=== PATIENT | male | born 1975 | race Caucasian/White ===

== ENCOUNTER 2017-12-28 10:04 | Emergency (ER) | payer SELFPAY ==
[2017-12-28 10:16] VITALS: BP 134/80; PULSE 82; TEMP 97.8; BMI 28.2
--- NOTE | 2017-12-28 11:54 | PDOC ---
History of Present Illness - General History Source: Patient Exam Limitations: No Limitations - History of Present Illness Initial Comments: 12/28/17 12:27 The patient is a 42 year old male with a significant PMH of hyperlipidemia who presents to the emergency department with left foot weakness for the past 4 days. The patient endorses heavy drinking on 12/23/17 and went to sleep that night but woke up with his left foot dangling off of his son's small bed. The patient reports associated numbness to the left forefoot but denies any foot or back pain. The patient notes he is having difficulty ambulating prompting his visit to the ER today. The patient denies any headache, double vision, upper extremity weakness, palpitations, trouble speaking, or back pain. The patient denies back pain, chest pain, shortness of breath, headache and dizziness. Denies fever, chills, nausea, vomit, diarrhea and constipation. Denies dysuria, frequency, urgency and hematuria. Allergies: NKA Past surgical history: None reported. Social history: Former smoker. Drinks 3-4 days per week. No reported drug use. PCP: Dr. Patton <Sis Mcgarry - Last Filed: 12/28/17 12:27> <Flavio Henning - Last Filed: 12/28/17 13:21> - General Chief Complaint: Pain, Acute Stated Complaint: LT FOOT NUMBESS Time Seen by Provider: 12/28/17 11:13 Past History <Sis Mcgarry - Last Filed: 12/28/17 12:27> - Past Medical History CVA: No COPD: No DVT: No Dementia: No Hypercholesterolemia: Yes - Immunization History Immunization Up to Date: Yes - Suicide/Smoking/Psychosocial Hx Smoking Status: No Smoking History: Former smoker Have you smoked in the past 12 months: No Number of Cigarettes Smoked Daily: 26 If you are a former smoker, when did you quit?: 7yrs Information on smoking cessation initiated: No Hx Alcohol Use: No Drug/Substance Use Hx: No Substance Use Type: None Hx Substance Use Treatment: No <Flavio Henning - Last Filed: 12/28/17 13:21> - Past Medical History Allergies/Adverse Reactions: Allergies Allergy/AdvReac Type Severity Reaction Status Date / Time No Known Allergies Allergy Verified 12/28/17 10:10 Home Medications: Ambulatory Orders No Home Medications 0 dose .ROUTE UTDICT 12/05/12 Metronidazole [Flagyl] 500 mg PO TID #28 tablet 12/07/12 Oxycodone HCl/Acetaminophen [Percocet 5-325 mg Tablet] 1 - 2 combo PO Q4H PRN # 0 tablet 12/07/12 Pantoprazole Sodium [Protonix -] 40 mg PO DAILY #0 tablet.ec 12/07/12 levoFLOXacin [Levaquin -] 500 mg PO DAILY #0 tablet 12/07/12 Leg Brace [Ankle Brace] 1 each MC ONCE #1 each 12/28/17 Review of Systems - Review of Systems Constitutional: No: Chills, Fever HEENTM: No: Recent change in vision, Double Vision ABD/GI: No: Nausea, Vomiting Musculoskeletal: No: Joint Pain, Muscle Pain Neurological: Yes: Weakness. No: Headache, Tingling, Ataxia All Other Systems: Reviewed and Negative <Flavio Henning - Last Filed: 12/28/17 13:21> *Physical Exam - Vital Signs Last Vital Signs Temp Pulse Resp BP Pulse Ox 97.8 F 82 16 134/80 97 12/28/17 10:11 12/28/17 10:11 12/28/17 10:11 12/28/17 10:11 12/28/17 10:11 - Physical Exam Comments: 12/28/17 12:28 GENERAL: The patient is awake, alert, and fully oriented, in no acute distress. HEAD: Normal with no signs of trauma. EYES: Pupils equal, round and reactive to light, extraocular movements intact, sclera anicteric, conjunctiva clear with no pallor. ENT: Ears normal, nares patent, oropharynx clear without exudates. Moist mucous membranes. NECK: Normal range of motion, supple without lymphadenopathy, JVD, or masses. LUNGS: Breath sounds equal, clear to auscultation bilaterally. No wheeze/ crackles. HEART: Regular rate and rhythm, normal S1 and S2 without murmur or rub. ABDOMEN: Soft/nontender/nondistended. BS wnl. No guarding or rebound. No palpable masses. No hepatosplenomegaly. EXTREMITIES: (+) 5/5 flexion and extension at the hip and leg. (+) 5/5 plantar flexion. (+) 3/5 dorsiflexion at the ankle. (+) 2+ DP/PT pulses. (+) Sensation intact. (+) Good cap refill. No edema. No clubbing or cyanosis. No cords, erythema, or tenderness. NEUROLOGICAL: Cranial nerves II through XII grossly intact. Normal speech. PSYCH: Normal mood, normal affect. SKIN: Warm, Dry, normal turgor, no rashes or lesions noted. <Sis Mcgarry - Last Filed: 12/28/17 12:27> - Vital Signs Last Vital Signs Temp Pulse Resp BP Pulse Ox 97.8 F 82 16 134/80 97 12/28/17 10:11 12/28/17 10:11 12/28/17 10:11 12/28/17 10:11 12/28/17 10:11 <Flavio Henning - Last Filed: 12/28/17 13:21> ED Treatment Course - RADIOLOGY Radiology Studies Ordered: Category Date Time Status HEAD CT (STROKE) [CT] Stat CT Scan 12/28/17 11:37 Ordered <Flavio Henning - Last Filed: 12/28/17 13:21> Medical Decision Making - Medical Decision Making 12/28/17 11:50 A portion of this note was documented by scribe services under my direction. I have reviewed the details of the note, within reason, and agree with the documentation with the following case summary and management plan written by me. Healthy 42-year-old male with history of slightly elevated cholesterol presents with 4 days of left foot weakness. Patient admits to heavy drinking Monday night, fell asleep in his son's bed and awoke Monday morning with left foot weakness described as inability to raise left foot. No pain, questionable subtle paresthesias, no other weakness or headache or neurological deficits. He has been having persistent difficulty ambulating secondary to the left foot drop so he presents for evaluation today. Vital signs normal. Well-appearing. 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 Less likely radiculopathy, and less likely [employer] event. We'll check CT head Reassurance, prescription for foot brace, medical clinic and physical therapy referral 12/28/17 13:07 CT without acute pathology. Will proceed with plan for d/c, PT f/u, understands return criteria. <Flavio Henning - Last Filed: 12/28/17 13:21> *DC/Admit/Observation/Transfer - Attestations Scribe Attestion: 12/28/17 12:28 Documentation prepared by Sis Mcgarry, acting as medical insurance claims specialist for Flavio Henning MD. <Sis Mcgarry - Last Filed: 12/28/17 12:27> <Flavio Henning - Last Filed: 12/28/17 13:21> Diagnosis at time of Disposition: Left foot drop - Discharge Dispostion Disposition: HOME Condition at time of disposition: Stable - Prescriptions Prescriptions: Leg Brace [Ankle Brace] 1 each MC ONCE #1 each - Referrals Referrals: Cy Lo MD [Staff Physician] - Hernan Thomas MD [Staff Physician] - - Patient Instructions Printed Discharge Instructions: Peroneal Nerve Injury Additional Instructions: Activity as tolerated. Use the ankle/foot brace as prescribed. Stay hydrated. Physical Therapy exercises as outlined. Call [phone] for an appointment with our physical therapists. Continue your medications as previously prescribed by your physician. You should follow up with a primary doctor (consider calling our clinic) as soon as possible regarding today's emergency department visit. Return to the emergency department for any new or concerning symptoms, particularly progressive or worsening weakness, pain, swelling or discoloration. - Post Discharge Activity
== END 2017-12-28 13:45 | disposition home or self-care (01) ==
LOC: JER 10:04 → JERFT 10:04 → JER 13:45
DX: M21.372 Foot drop, left foot (principal)
CPT/HCPCS: 70450-TC; 99282-25

== ENCOUNTER 2019-07-19 13:20 | Emergency (ER) | payer OTHER ==
[2019-07-19 13:35] VITALS: BP 131/84; PULSE 69; TEMP 98.2; BMI 29.8
[2019-07-19] MEDS ORDERED: PROMETHAZINE HCL 50 MG/1 ML AMP IM ONE (14:17)
[2019-07-19] MEDS ORDERED: diazePAM 2 MG TABLET PO ONE (14:17)
--- NOTE | 2019-07-19 14:22 | PDOC ---
History of Present Illness - General Chief Complaint: Substance Abuse Stated Complaint: DETOX Time Seen by Provider: 07/19/19 14:15 History Source: Patient Exam Limitations: No Limitations - History of Present Illness Initial Comments: 07/19/19 14:18 HISTORY OF PRESENT ILLNESS: 44-year-old male with past medical history of testicular cancer status post orchiectomy 04/30 who presents to the emergency department for evaluation for opioid detox. Patient reports he been taking 20- 30 tablets daily of "whatever I can get on the street" but usually oxycodone. He reports he attempted to call detox facility but "they took too long to answer." Patient presented to emergency department for evaluation. Currently reports nausea and irritability but denies other symptoms. No recent travel or sick contacts. PAST MEDICAL HISTORY: see HPI SURGICAL HISTORY: see HPI ALLERGIES: No known drug allergies REVIEW OF SYSTEMS General/Constitutional: Denies fever or chills. Denies weakness, weight change. HEENT: Denies change in vision. Denies ear pain or discharge. Denies sore throat. Cardiovascular: Denies chest pain or shortness of breath. Respiratory: Denies cough, wheezing, or hemoptysis. Gastrointestinal: Denies nausea, vomiting, diarrhea or constipation. Denies rectal bleeding. Genitourinary: see HPI Musculoskeletal: Denies joint or muscle swelling or pain. Denies neck or back pain. Skin and breasts: Denies rash or easy bruising. Neurologic: Denies headache, vertigo, loss of consciousness, or loss of sensation. Psychiatric: see HPI Endocrine: Denies increased thirst. Denies abnormal weight change. Hematologic/Lymphatic: Denies anemia, easy bleeding, or history of blood clots. Allergic/Immunologic: Denies hives or skin allergy. Denies latex allergy. PHYSICAL EXAM General Appearance: Well-appearing, appropriately dressed. No apparent distress , no intoxication. HEENT: EOMI, PERRLA, normal ENT inspection, normal voice, TMs normal, pharynx normal. No conjunctival pallor. No photophobia, scleral icterus. Respiratory/Chest: Lungs CTAB. No shortness of breath, chest tenderness, respiratory distress, accessory muscle use. No crackles, rales, rhonchi, stridor , wheezing, dullness Cardiovascular: RRR. S1, S2. No JVD, murmur, bradycardia, tachycardia. Vascular Pulses: Dorsalis-Pedis (R): 2+, Dorsalis-Pedis (L): 2+ Gastrointestinal/Abdominal: Normal bowel sounds. Abdomen soft, non-distended. No tenderness or rebound tenderness. No organomegaly, pulsatile mass, guarding, hernia, hepatomegaly, splenomegaly. Lymphatic: No adenopathy, tenderness. Musculoskeletal/Extremities: Normal inspection. FROM of all extremities, normal capillary refill. Pelvis Stable. No CVA tenderness. No tenderness to extremities, pedal edema, swelling, erythema or deformity. Integumentary: Appropriate color, dry, warm. No cyanosis, erythema, jaundice or rash. Gooseflesh skin. Neurologic: maternity nurse II-XII intact. Fully oriented, alert. Appropriate mood/affect. Motor strength 5/5. No appreciable EOM palsy, facial droop or sensory deficit. No tremors noted. 07/19/19 14:23 Past History - Past Medical History Allergies/Adverse Reactions: Allergies Allergy/AdvReac Type Severity Reaction Status Date / Time No Known Allergies Allergy Verified 07/19/19 13:31 Home Medications: Ambulatory Orders No Home Medications 0 dose .ROUTE UTDICT 12/05/12 Metronidazole [Flagyl] 500 mg PO TID #28 tablet 12/07/12 Oxycodone HCl/Acetaminophen [Percocet 5-325 mg Tablet] 1 - 2 combo PO Q4H PRN # 0 tablet 12/07/12 Pantoprazole Sodium [Protonix -] 40 mg PO DAILY #0 tablet.ec 12/07/12 levoFLOXacin [Levaquin -] 500 mg PO DAILY #0 tablet 12/07/12 Leg Brace [Ankle Brace] 1 each MC ONCE #1 each 12/28/17 CVA: No COPD: No DVT: No Dementia: No Hypercholesterolemia: Yes Lung CA: Yes (oxycotine abuse 25-35pills daily) - Immunization History Immunization Up to Date: Yes - Suicide/Smoking/Psychosocial Hx Smoking Status: No Smoking History: Former smoker Have you smoked in the past 12 months: No Number of Cigarettes Smoked Daily: 26 If you are a former smoker, when did you quit?: 7yrs Information on smoking cessation initiated: No Hx Alcohol Use: No Drug/Substance Use Hx: No Substance Use Type: None Hx Substance Use Treatment: No *Physical Exam - Vital Signs Last Vital Signs Temp Pulse Resp BP Pulse Ox 98.2 F 69 16 131/84 100 07/19/19 13:32 07/19/19 13:32 07/19/19 13:32 07/19/19 13:32 07/19/19 13:32 ED Treatment Course - LABORATORY CBC & Chemistry Diagram: 07/19/19 14:50 07/19/19 14:50 Medical Decision Making - Medical Decision Making 07/19/19 14:25 A/P: 44-year-old male for evaluation of opiate withdrawal The patient hasabdominal tenderness worse scleral icterus I cannot rule out's liver damage due to possible prolonged use of Tylenol containing pharmaceuticals. COWS- 10 mild withdrawal CBC, CMP, urine toxicology Phenergan 25 mg IM now Valium 2 mg orally now- low threshold increased dosage prn We'll contact [facility] for admission if laboratory testing is normal. 07/19/19 16:23 Laboratory testing is unremarkable. No signs of liver failure noted. Patient is aware there are no beds in detox at this time. Patient reports frustration with lack of beds at detox facility. Patient is requesting discharge at this time. I will discharge the patient home to return to [facility] as needed for detox. 07/19/19 16:35 *DC/Admit/Observation/Transfer Diagnosis at time of Disposition: Opiate abuse, continuous - Discharge Dispostion Disposition: HOME Condition at time of disposition: Stable Decision to Admit order: No - Referrals Referrals: Rigoberto Patton MD [Primary Care Provider] - - Patient Instructions Additional Instructions: Go to [facility] should you desire detox. There are other detox facilities in [facility] that you may use should you choose. Return to emergency department for any new or worsening symptoms. Thank you very much for choosing us to provide your emergent health care needs. - Post Discharge Activity
[2019-07-19] MEDS ORDERED: PROMETHAZINE HCL 25 MG/1 ML VIAL ONE (14:35)
[2019-07-19] MEDS ORDERED: diazePAM 2 MG TABLET ONE (14:35)
[2019-07-19 15:11] LABS: BASO % 0.3 % (0-2.0); EOS % 0.1 % (0-4.5); HEMOGLOBIN 12.9 GM/dL (11.7-16.9); LYMPH % 13.6 % (8-40); MCH 28.8 pg (25.7-33.7); MCHC 33.8 g/dl (32.0-35.9); MEAN CELL VOLUME 85.1 fl (80-96); MEAN PLT VOLUME 8.7 fl (7.5-11.1); MONO % 3.2 % (3.8-10.2); NEUT % 82.8 % (42.8-82.8); PLATELET COUNT 292 K/MM3 (134-434); RBC 4.47 M/mm3 (4.00-5.60); RDW 13.6 % (11.9-15.9); WHITE BLOOD COUNT 10.5 K/mm3 (4.0-10.0)
--- NOTE | 2019-07-19 15:23 | PDOC ---
*Physical Exam - Vital Signs Last Vital Signs Temp Pulse Resp BP Pulse Ox 98.2 F 69 16 131/84 100 07/19/19 13:32 07/19/19 13:32 07/19/19 13:32 07/19/19 13:32 07/19/19 13:32 ED Treatment Course - LABORATORY CBC & Chemistry Diagram: 07/19/19 14:50 07/19/19 14:50 - ADDITIONAL ORDERS Additional order review: 07/19/19 14:50 RBC 4.47 MCV 85.1 MCHC 33.8 RDW 13.6 MPV 8.7 Neutrophils % 82.8 D Lymphocytes % 13.6 D Monocytes % 3.2 L Eosinophils % 0.1 D Basophils % 0.3 - Medications Given in the ED: ED Medications Discontinued Medications Generic Name Dose Route Start Last Admin Trade Name Alexandre PRN Reason Stop Dose Admin Diazepam 2 mg 07/19/19 14:17 07/19/19 14:41 Valium - PO 07/19/19 14:18 2 mg ONCE ONE Administration Promethazine HCl 25 mg 07/19/19 14:17 07/19/19 14:41 Phenergan Injection (Im Use Only) - IM 07/19/19 14:18 25 mg ONCE ONE Administration Medical Decision Making - Medical Decision Making 07/19/19 15:19 Adiel is a 44 yo M who presents to the ER with polysubstance abuse Pt has mild abdominal pain Agree with examination Plan to transfer to [facility] 07/19/19 16:19 Laboratory Tests 07/19/19 07/19/19 14:50 14:50 WBC 10.5 H Hgb 12.9 Hct 38.0 Plt Count 292 D Total Bilirubin 0.5 AST 18 ALT 41 There are no beds at [facility] Will plan to discharge to home Labs reviewed No evidence at this time of transaminitis clinical impression: polysubstance abuse, initial presentation *DC/Admit/Observation/Transfer Diagnosis at time of Disposition: Opiate abuse, continuous - Discharge Dispostion Disposition: HOME Condition at time of disposition: Stable - Referrals Referrals: Rigoberto Patton MD [Primary Care Provider] - - Patient Instructions Additional Instructions: Go to [facility] should you desire detox. There are other detox facilities in [facility] that you may use should you choose. Return to emergency department for any new or worsening symptoms. Thank you very much for choosing us to provide your emergent health care needs. - Post Discharge Activity
[2019-07-19 15:28] LABS: ALBUMIN 4.3 g/dl (3.4-5.0); BILIRUBIN,TOTAL 0.5 mg/dL (0.2-1); BLOOD UREA NITROGEN 11.8 mg/dL (7-18); CALCIUM 9.9 mg/dL (8.5-10.1); CREATININE 0.9 mg/dL (0.55-1.3); POTASSIUM 3.8 mmol/L (3.5-5.1); TOT PROT 7.9 g/dl (6.4-8.2)
--- NOTE | 2019-07-22 11:32 | EKG ---
Test Reason : Blood Pressure : / mmHG Vent. Rate : 061 BPM Atrial Rate : 061 BPM P-R Int : 176 ms QRS Dur : 092 ms QT Int : 434 ms P-R-T Axes : 040 -03 023 degrees QTc Int : 436 ms NORMAL SINUS RHYTHM NORMAL ECG NO PREVIOUS ECGS AVAILABLE Confirmed by HAYLEY BOBBY MD ([id number]) on 07/22/2019 11:31:51 AM Referred By: Confirmed By:HAYLEY BOBBY MD
== END 2019-07-19 17:45 | disposition home or self-care (01) ==
LOC: JER 13:20
PROC: 3E023GC Introduction of Other Therapeutic Substance into Muscle, Percutaneous Approach (ICD-10-PCS; principal; 2019-07-19)
DX: F11.10 Opioid abuse, uncomplicated (principal); Z85.47 Personal history of malignant neoplasm of testis; Z90.79 Acquired absence of other genital organ(s)
CPT/HCPCS: 36415; 80053; 85025; 93005; 93010; 99281-25

== ENCOUNTER 2023-03-13 04:43 | Day surgery (SDC) | payer OTHER ==
[2023-03-10 13:21] VITALS: BMI 31.4
[2023-03-13 11:22] VITALS: TEMP 97
[2023-03-13 11:49] VITALS: BP 100/58; PULSE 75; RESP 18
== END 2023-03-13 12:10 | disposition home or self-care (01) ==
LOC: JASU-ENDO 04:43
PROVIDERS: ATTEND Internal Medicine Gastroenterology
PROC: 0DJD8ZZ Inspection of Lower Intestinal Tract, Via Natural or Artificial Opening Endoscopic (ICD-10-PCS; principal; 2023-03-13 11:00)
DX: Z12.11 Encounter for screening for malignant neoplasm of colon (principal); Z83.71 Family history of colonic polyps

== ENCOUNTER 2024-01-10 20:04 | Inpatient (IN) | payer OTHER ==
[2024-01-10 20:45] LABS: ARTERIAL BLD GAS O2 SATURATION 92.6 % (95-98); ARTERIAL BLOOD GAS BASE EXCESS -5.6 mmol/L (-2-2); ARTERIAL BLOOD GAS PO2 69.8 mmHg (80-100); ARTERIAL BLOOD GAS pH 7.314 (7.350-7.450)
[2024-01-10] MEDS: SODIUM CHLORIDE 0.9% 500 ML INFUS.BAG IV ONE (20:45)
[2024-01-10 20:46] LABS: VENOUS BASE EXCESS -1.8 mmol/L (-2-2); VENOUS O2 SATURATION 40.9 % (70-80); VENOUS PCO2 52.3 mmHg (38-52); VENOUS PH 7.299 (7.310-7.410)
[2024-01-10 20:51] LABS: BASO % 0.2 % (0-2.0); HEMATOCRIT 33.4 % (35.4-49); HEMOGLOBIN 11.1 GM/dL (11.7-16.9); LYMPH % 4.5 % (8-40); MCH 27.1 pg (25.7-33.7); MCHC 33.2 g/dl (32.0-35.9); MEAN CELL VOLUME 81.8 fl (80-96); MEAN PLT VOLUME 8.8 fl (7.5-11.1); MONO % 7.8 % (3.8-10.2); NEUT % 86.5 % (42.8-82.8); PLATELET COUNT 257 10^3/uL (134-434); RBC 4.09 M/mm3 (4.00-5.60); WHITE BLOOD COUNT 14.4 K/mm3 (4.0-10.0)
[2024-01-10 20:57] LABS: INR 1.1 (0.83-1.09); PROTHROMBIN TIME (PATIENT) 12.7 SEC (9.7-13.0)
[2024-01-10 21:08] LABS: CHLORIDE 99 mmol/L (98-107); POTASSIUM 3.9 mmol/L (3.5-5.1); SODIUM 136 mmol/L (136-145)
[2024-01-10 21:11] LABS: ANION GAP 13 mmol/L (4-13); BLOOD UREA NITROGEN 74.5 mg/dL (7-18); CALCIUM 9.1 mg/dL (8.5-10.1); CO2 24 mmol/L (21-32); GLUCOSE,RANDOM 107 mg/dL (74-106)
[2024-01-10 21:15] LABS: SGOT/AST 18 U/L (15-37); SGPT/ALT 23 U/L (13-61)
[2024-01-10] MEDS: PIPERACILLIN/TAZOBACTAM 4.5 GM VIAL IVPB ONE (21:15)
[2024-01-10 21:16] LABS: BILIRUBIN,TOTAL 0.4 mg/dL (0.2-1); TOT PROT 6.7 g/dl (6.4-8.2)
[2024-01-10 21:17] LABS: ALK PHOS 73 U/L (45-117)
[2024-01-10] MEDS ORDERED: PIPERACILLIN/TAZOB 4.5 GM 4.5 GM/100 ML BAG IVPB ONE (21:19)
[2024-01-10] MEDS ORDERED: AZITHROMYCIN IVPB 500 MG/250 ML BAG IVPB ONE (21:19)
[2024-01-10] MEDS ORDERED: VANCOMYCIN 1 GRAM (PRE-DOCKED) 1,000 MG/250 ML BAG IVPB ONE (21:19)
[2024-01-10] MEDS: AZITHROMYCIN IVPB 500 MG in DEXTROSE 5%-WATER - 250 ML IVPB ONE (21:48)
[2024-01-10] MEDS: LACTATED RINGERS SOLUTION 1,000 ML/1,000 ML INFUS.BAG IV SCH ×2 (21:55→23:49)
[2024-01-10] MEDS ORDERED: ONDANSETRON 4 MG/2 ML VIAL ONE (21:58)
[2024-01-10] MEDS: ONDANSETRON 4 MG/2 ML VIAL IVPUSH ONE (22:03)
[2024-01-10] MEDS ORDERED: RAPID SEQUENCE INTUBATION KIT NR ONE (22:39)
[2024-01-10] MEDS ORDERED: NOREPINEPHRINE BITARTRATE/D5W 8 MG/250 ML BAG IVPB ONE (22:39)
[2024-01-10] MEDS: VANCOMYCIN 1,000 MG in DEXTROSE 5%-WATER - 250 ML IVPB ONE (23:45)
[2024-01-11] MEDS ORDERED: LIDOCAINE HCL 2% JELLY 6 ML TP ONE (00:33)
[2024-01-11 01:05] LABS: BASO % 0.2 % (0-2.0); EOS % 1.1 % (0-4.5); HEMATOCRIT 25.8 % (35.4-49); HEMOGLOBIN 8.8 GM/dL (11.7-16.9); LYMPH % 6.7 % (8-40); MCH 27.8 pg (25.7-33.7); MCHC 34.2 g/dl (32.0-35.9); MEAN CELL VOLUME 81.2 fl (80-96); MEAN PLT VOLUME 8.3 fl (7.5-11.1); MONO % 8.2 % (3.8-10.2); NEUT % 83.8 % (42.8-82.8); PLATELET COUNT 208 10^3/uL (134-434); RBC 3.17 M/mm3 (4.00-5.60); RDW 14.1 % (11.9-15.9); WHITE BLOOD COUNT 11.7 K/mm3 (4.0-10.0)
[2024-01-11 01:16] LABS: POTASSIUM 3.8 mmol/L (3.5-5.1)
[2024-01-11 01:18] LABS: CALCIUM 7.8 mg/dL (8.5-10.1)
[2024-01-11 01:19] LABS: BLOOD UREA NITROGEN 66.3 mg/dL (7-18)
[2024-01-11 01:22] LABS: CREATININE 5.2 mg/dL (0.55-1.3)
[2024-01-11 01:23] LABS: BILIRUBIN,TOTAL 0.4 mg/dL (0.2-1); TOT PROT 5.4 g/dl (6.4-8.2)
[2024-01-11 01:42] LABS: URINE APPEARANCE CLOUDY; URINE BILIRUBIN NEGATIVE (NEGATIVE); URINE COLOR YELLOW; URINE GLUCOSE (UA) NEGATIVE (NEGATIVE); URINE KETONE NEGATIVE (NEGATIVE)
[2024-01-11 01:43] LABS: MAGNESIUM 2.5 mg/dL (1.8-2.4)
[2024-01-11 01:43] LABS: EPI CELLS >36 /uL (0-25.1); HYALINE CASTS 4 /uL (0-3.1); URINE BACTERIA 17 /uL (0-1359); URINE LEUK ESTERASE NEGATIVE (NEGATIVE); URINE NITRITE NEGATIVE (NEGATIVE); URINE PROTEIN TRACE (NEGATIVE); URINE UROBILINOGEN 0.2 mg/dL (0.2-1.0)
[2024-01-11 01:47] LABS: PHOSPHOROUS 2.5 mg/dL (2.5-4.9)
[2024-01-11 01:59] LABS: ALBUMIN 2.3 g/dl (3.4-5.0)
[2024-01-11] MEDS: LACTATED RINGERS SOLUTION 1,000 ML/1,000 ML INFUS.BAG IV SCH (02:00)
[2024-01-11] MEDS: MUPIROCIN 2% TOPICAL OINTMENT FOR DECOLONIZATION NS SCH (02:40)
[2024-01-11] MEDS: PIPERACILLIN/TAZOB 2.25 GM 2.25 GM in DEXTROSE 5%-WATER - 50 ML IVPB SCH ×2 (02:42→09:55)
[2024-01-11 02:54] LABS: COCAINE, UR NEGATIVE (NEGATIVE); OPIATES, URI NEGATIVE (NEGATIVE); URINE BARBITURATES NEGATIVE (NEGATIVE)
[2024-01-11 02:55] LABS: METHADONE, UR NEGATIVE (NEGATIVE); PHENCYCLIDINE,URINE NEGATIVE (NEGATIVE)
[2024-01-11 03:17] LABS: URINE AMPHETAMINES POSITIVE (NEGATIVE); URINE BENZODIAZEPINES POSITIVE (NEGATIVE)
[2024-01-11] MEDS: HEPARIN NA (PORCINE) 5,000 UNITS/ML 1ML VIAL SQ SCH (06:17)
[2024-01-11] MEDS ORDERED: METOPROLOL TARTRATE 5 MG/5 ML VIAL IVPUSH ONE (06:42)
[2024-01-11] MEDS: hydrALAZINE HCL 20 MG/ML VIAL IVPUSH ONE (07:00)
[2024-01-11 07:30] LABS: ARTERIAL BLD GAS O2 SATURATION 98.1 % (95-98); ARTERIAL BLOOD GAS BASE EXCESS -1.3 mmol/L (-2-2); ARTERIAL BLOOD GAS PO2 119.9 mmHg (80-100); ARTERIAL BLOOD GAS pH 7.345 (7.350-7.450)
[2024-01-11 07:38] LABS: URINE RBC 24.9 /uL (0-23.9)
[2024-01-11 08:29] LABS: HEMATOCRIT 26.4 % (35.4-49); HEMOGLOBIN 9.1 GM/dL (11.7-16.9); MCH 27.9 pg (25.7-33.7); MCHC 34.3 g/dl (32.0-35.9); MEAN CELL VOLUME 81.4 fl (80-96); MEAN PLT VOLUME 8.5 fl (7.5-11.1); PLATELET COUNT 222 10^3/uL (134-434); RBC 3.25 M/mm3 (4.00-5.60); WHITE BLOOD COUNT 11.9 K/mm3 (4.0-10.0)
[2024-01-11 08:47] LABS: HIV INTERPRETATION NEGATIVE (NEGATIVE)
[2024-01-11] MEDS: PANTOPRAZOLE SODIUM 40 MG VIAL IVPUSH SCH (09:55)
[2024-01-11 10:46] LABS: ANISOCYTOSIS 2+; MACROCYTOSIS 0
[2024-01-11 11:01] LABS: POTASSIUM 4.1 mmol/L (3.5-5.1)
[2024-01-11 11:04] LABS: ALBUMIN 2.3 g/dl (3.4-5.0); CALCIUM 8.5 mg/dL (8.5-10.1)
[2024-01-11 11:05] LABS: BLOOD UREA NITROGEN 54.9 mg/dL (7-18)
[2024-01-11 11:07] LABS: CREATININE 3.8 mg/dL (0.55-1.3)
[2024-01-11 11:09] LABS: BILIRUBIN,TOTAL 0.4 mg/dL (0.2-1); TOT PROT 5.6 g/dl (6.4-8.2)
[2024-01-11] MEDS: methylPREDNISolone NA SUCC 40 MG/1 ML VIAL IVPUSH SCH (11:51)
[2024-01-11] MEDS: SODIUM CHLORIDE 1,000 ML IV SCH (11:52)
[2024-01-11] MEDS: BUPRENORPHINE/NALOXONE 2 MG/0.5 MG FILM PACKET SL SCH (14:58)
[2024-01-11] MEDS: guaiFENesin 200 MG/10 ML 10 ML UNIT-DOSE CUPS PO PRN (14:58)
[2024-01-11] MEDS: ALPRAZolam 1 MG TABLET PO PRN (14:59)
[2024-01-11] MEDS: ACETAMINOPHEN 325 MG TABLET (FP) PO PRN (14:59)
[2024-01-11] MEDS: ALBUTEROL SO4 HFA INHALER IH PRN (14:59)
[2024-01-11] MEDS: lamoTRIgine 25 MG TABLET PO SCH (15:02)
[2024-01-11 15:18] LABS: RETICULOCYTES 0.75 % (0.5-1.5)
[2024-01-11] MEDS: SODIUM CHLORIDE 0.45% 1,000 ML IV SCH (15:18)
[2024-01-11] MEDS: VANCOMYCIN/WATER 1250 MG 1,250 MG/250 ML BAG IVPB ONE (15:18)
[2024-01-11] MEDS: PATIENT'S OWN MEDICATION (NON-FORMULARY) (Bupropion Hcl [Wellbutrin Sr] 150 MG Tab.Sr.12h) PO SCH (17:31)
[2024-01-11] MEDS: TESTOSTERONE TD SCH (17:31)
[2024-01-11] MEDS: BUPRENORPHINE/NALOXONE 4 MG/1 MG FILM PACKET SL SCH (17:31)
[2024-01-11] MEDS: AZITHROMYCIN IVPB 500 MG/250 ML BAG IVPB SCH (22:40)
[2024-01-11] MEDS: CHLORHEXIDINE GLUCONATE 4% CLEANSER FOR DECOLONIZATION TP SCH (22:40)
[2024-01-11] MEDS ORDERED: VANCOMYCIN PREMIX 1.5 GM 1,500 MG/300 ML BAG IVPB SCH ×2 (23:00)
[2024-01-12 07:33] LABS: INR 1.16 (0.83-1.09); PROTHROMBIN TIME (PATIENT) 13.4 SEC (9.7-13.0)
[2024-01-12 07:34] LABS: HEMATOCRIT 27.9 % (35.4-49); HEMOGLOBIN 9.3 GM/dL (11.7-16.9); MCH 27.7 pg (25.7-33.7); MCHC 33.5 g/dl (32.0-35.9); MEAN CELL VOLUME 82.7 fl (80-96); MEAN PLT VOLUME 8.2 fl (7.5-11.1); PLATELET COUNT 288 10^3/uL (134-434); RBC 3.37 M/mm3 (4.00-5.60); RDW 14.2 % (11.9-15.9); WHITE BLOOD COUNT 12.1 K/mm3 (4.0-10.0)
[2024-01-12 07:59] LABS: POTASSIUM 4.9 mmol/L (3.5-5.1)
[2024-01-12 08:09] LABS: ALBUMIN 2.3 g/dl (3.4-5.0); BLOOD UREA NITROGEN 36.3 mg/dL (7-18); CALCIUM 8.4 mg/dL (8.5-10.1)
[2024-01-12 08:11] LABS: MAGNESIUM 2.4 mg/dL (1.8-2.4)
[2024-01-12 08:13] LABS: BILIRUBIN,TOTAL 0.4 mg/dL (0.2-1); TOT PROT 5.8 g/dl (6.4-8.2)
[2024-01-12 09:04] LABS: ANISOCYTOSIS 0; MACROCYTOSIS 0
[2024-01-12] MEDS: TAMSULOSIN HCL 0.4 MG CAP PO SCH (09:30)
[2024-01-12] MEDS: FINASTERIDE 5 MG TABLET (FP) PO SCH (09:40)
[2024-01-12] MEDS: BENZOCAINE/MENTH/CETYLPYRD CL 1 EACH LOZENGE MM PRN (09:55)
[2024-01-12] MEDS: FENOFIBRIC ACID 135 MG CAP PO SCH (09:55)
[2024-01-12 13:22] VITALS: BMI 31.1
[2024-01-12] MEDS: POLYETHYLENE GLYCOL (HEALTHYLAX) 3350 17 GM PACKET PO ONE (15:23)
[2024-01-12] MEDS: POLYETHYLENE GLYCOL (HEALTHYLAX) 3350 17 GM PACKET PO SCH (15:32)
[2024-01-12] MEDS: PIPERACILLIN/TAZOB 2.25 GM 2.25 GM in DEXTROSE 5%-WATER - 50 ML IVPB SCH (15:45)
[2024-01-12] MEDS: HEPARIN NA (PORCINE) 5,000 UNITS/ML 1ML VIAL SQ SCH (15:47)
[2024-01-12] MEDS ORDERED: INSULIN ASPART SLIDING SCALE (NOVOLOG) 1 VIAL SQ ONE (16:17)
[2024-01-12] MEDS ORDERED: AZITHROMYCIN IVPB 250 MG in DEXTROSE 5%-WATER - 250 ML IVPB SCH ×2 (17:15→21:15)
[2024-01-12] MEDS: AZITHROMYCIN IVPB 250 MG in DEXTROSE 5%-WATER - 250 ML IVPB SCH (21:28)
[2024-01-12] MEDS ORDERED: HEPARIN NA (PORCINE) 5,000 UNITS/ML 1ML VIAL SQ SCH (22:00)
[2024-01-13] MEDS: CEFTRIAXONE 2 GM in DEXTROSE 5%-WATER 100 ML IVPB SCH (09:17)
[2024-01-13] MEDS: PANTOPRAZOLE 40 MG TABLET PO SCH (09:18)
[2024-01-13] MEDS: methylPREDNISolone NA SUCC 40 MG/1 ML VIAL IVPUSH SCH (09:18)
[2024-01-13 09:22] LABS: POTASSIUM 4.6 mmol/L (3.5-5.1)
[2024-01-13 09:26] LABS: BLOOD UREA NITROGEN 24.8 mg/dL (7-18)
[2024-01-13 09:31] LABS: BILIRUBIN,TOTAL 0.2 mg/dL (0.2-1); CALCIUM 8.7 mg/dL (8.5-10.1); MAGNESIUM 2.1 mg/dL (1.8-2.4)
[2024-01-13 09:32] LABS: ALBUMIN 2.2 g/dl (3.4-5.0)
[2024-01-13 09:35] LABS: CREATININE 1.2 mg/dL (0.55-1.3); PHOSPHOROUS 2.9 mg/dL (2.5-4.9)
[2024-01-13 09:36] LABS: HEMATOCRIT 27.6 % (35.4-49); HEMOGLOBIN 9.3 GM/dL (11.7-16.9); MCHC 33.6 g/dl (32.0-35.9); MEAN CELL VOLUME 83.1 fl (80-96); MEAN PLT VOLUME 7.9 fl (7.5-11.1); PLATELET COUNT 307 10^3/uL (134-434); RBC 3.32 M/mm3 (4.00-5.60); RDW 14.4 % (11.9-15.9); TOT PROT 5.6 g/dl (6.4-8.2); WHITE BLOOD COUNT 11.6 K/mm3 (4.0-10.0)
[2024-01-13] MEDS ORDERED: PANTOPRAZOLE SODIUM 40 MG VIAL IVPUSH SCH (10:00)
[2024-01-14 07:30] VITALS: RESP 18
[2024-01-14 08:48] LABS: HEMATOCRIT 29.8 % (35.4-49); MCH 27.8 pg (25.7-33.7); MCHC 33.7 g/dl (32.0-35.9); MEAN CELL VOLUME 82.5 fl (80-96); MEAN PLT VOLUME 7.4 fl (7.5-11.1); PLATELET COUNT 303 10^3/uL (134-434); RBC 3.61 M/mm3 (4.00-5.60); RDW 14.6 % (11.9-15.9); WHITE BLOOD COUNT 11.2 K/mm3 (4.0-10.0)
[2024-01-14 09:13] LABS: POTASSIUM 4.2 mmol/L (3.5-5.1)
[2024-01-14 09:16] LABS: CALCIUM 8.8 mg/dL (8.5-10.1)
[2024-01-14 09:17] LABS: ALBUMIN 2.4 g/dl (3.4-5.0); BLOOD UREA NITROGEN 21.7 mg/dL (7-18); MAGNESIUM 1.9 mg/dL (1.8-2.4)
[2024-01-14 09:20] LABS: CREATININE 1.1 mg/dL (0.55-1.3); PHOSPHOROUS 3.3 mg/dL (2.5-4.9)
[2024-01-14 09:21] LABS: BILIRUBIN,TOTAL 0.5 mg/dL (0.2-1)
[2024-01-14 09:22] LABS: TOT PROT 5.8 g/dl (6.4-8.2)
[2024-01-14] MEDS: ALPRAZolam 1 MG TABLET PO PRN (17:16)
[2024-01-15 09:27] LABS: HEMATOCRIT 32.9 % (35.4-49); HEMOGLOBIN 10.5 GM/dL (11.7-16.9); MCH 26.6 pg (25.7-33.7); MCHC 31.9 g/dl (32.0-35.9); MEAN CELL VOLUME 83.2 fl (80-96); MEAN PLT VOLUME 7.3 fl (7.5-11.1); PLATELET COUNT 344 10^3/uL (134-434); RBC 3.95 M/mm3 (4.00-5.60); RDW 14.3 % (11.9-15.9); WHITE BLOOD COUNT 13.6 K/mm3 (4.0-10.0)
[2024-01-15 09:56] LABS: POTASSIUM 4.3 mmol/L (3.5-5.1)
[2024-01-15 10:10] LABS: BLOOD UREA NITROGEN 25.8 mg/dL (7-18)
[2024-01-15 10:11] LABS: CREATININE 1.1 mg/dL (0.55-1.3)
[2024-01-15 10:12] LABS: CALCIUM 8.8 mg/dL (8.5-10.1); MAGNESIUM 1.9 mg/dL (1.8-2.4)
[2024-01-15 10:13] LABS: PHOSPHOROUS 3.8 mg/dL (2.5-4.9)
[2024-01-15] MEDS ORDERED: ALBUTEROL SO4 2.5/IPRATROPIUM 0.5 INH SOL 3 ML VIAL.NEB. NEB PRN (14:50)
[2024-01-15] MEDS: ALPRAZolam 1 MG TABLET PO PRN (15:58)
[2024-01-16] MEDS: AMOX TR/POT CLAV 875MG/125MG TABLETS (FP) PO SCH (08:37)
[2024-01-16 09:17] LABS: HEMATOCRIT 33.4 % (35.4-49); HEMOGLOBIN 11.2 GM/dL (11.7-16.9); MCH 27.7 pg (25.7-33.7); MCHC 33.5 g/dl (32.0-35.9); MEAN CELL VOLUME 82.6 fl (80-96); PLATELET COUNT 362 10^3/uL (134-434); RBC 4.04 M/mm3 (4.00-5.60); RDW 14.3 % (11.9-15.9); WHITE BLOOD COUNT 15.4 K/mm3 (4.0-10.0)
[2024-01-16 10:00] LABS: POTASSIUM 3.8 mmol/L (3.5-5.1)
[2024-01-16 10:05] LABS: CALCIUM 9.3 mg/dL (8.5-10.1)
[2024-01-16 10:06] LABS: ALBUMIN 2.8 g/dl (3.4-5.0)
[2024-01-16 10:09] LABS: CREATININE 1.2 mg/dL (0.55-1.3)
[2024-01-16 10:10] LABS: BILIRUBIN,TOTAL 0.3 mg/dL (0.2-1)
[2024-01-16 10:11] LABS: TOT PROT 6.9 g/dl (6.4-8.2)
[2024-01-16 10:37] VITALS: BP 119/65; PULSE 81; TEMP 98.5
== END 2024-01-16 13:42 | disposition home or self-care (01) | DRG 139 ==
LOC: JER 20:04 → JERBED 20:45 → JICU 01-11 01:59 → J5S 01-12 14:11
PROVIDERS: ADMIT Internal Medicine Pulmonary Disease; ATTEND Internal Medicine
DX: J18.9 Pneumonia, unspecified organism (principal); G92.8 Other toxic encephalopathy; J96.01 Acute respiratory failure with hypoxia; N17.9 Acute kidney failure, unspecified; I10 Essential (primary) hypertension; E78.5 Hyperlipidemia, unspecified; F11.20 Opioid dependence, uncomplicated; R33.9 Retention of urine, unspecified; K76.0 Fatty (change of) liver, not elsewhere classified; D72.829 Elevated white blood cell count, unspecified; D64.9 Anemia, unspecified; N40.0 Benign prostatic hyperplasia without lower urinary tract symptoms; Z85.47 Personal history of malignant neoplasm of testis
CPT/HCPCS: 0241U-QW; 36415; 36600; 70450-TC; 71045-TC-FY; 71250-TC; 76775-TC; 76856-TC; 80048; 80053; 80307; 81003; 82272; 82436; 82550; 82570; 82728; 82803; 82962; 83540; 83550; 83605; 83735; 83880; 84100; 84133; 84300; 84484; 85025; 85027; 85045; 85610; 85730; 86480; 86850; 86900; 86901; 87040; 87070; 87081; 87086; 87205; 87389; 87899; 93005; 93010; 93306-TC; 94761; 97116-GP; 97162-GP; 99291; G0480; J1644

== ENCOUNTER 2024-03-07 17:54 | Emergency (ER) | payer OTHER ==
[2024-03-07 18:05] VITALS: BP 110/71; PULSE 101; RESP 20; TEMP 98.3; BMI 27.8
[2024-03-07] MEDS: SODIUM CHLORIDE 0.9% 500 ML INFUS.BAG IV ONE (19:29)
[2024-03-07 19:34] LABS: BASO % 0.5 % (0-2.0); EOS % 1.2 % (0-4.5); HEMATOCRIT 31.3 % (35.4-49); HEMOGLOBIN 10.6 GM/dL (11.7-16.9); LYMPH % 18.9 % (8-40); MCH 27.3 pg (25.7-33.7); MCHC 33.7 g/dl (32.0-35.9); MEAN CELL VOLUME 80.9 fl (80-96); MEAN PLT VOLUME 7.8 fl (7.5-11.1); MONO % 9.1 % (3.8-10.2); NEUT % 70.3 % (42.8-82.8); PLATELET COUNT 310 10^3/uL (134-434); RBC 3.87 M/mm3 (4.00-5.60); WHITE BLOOD COUNT 10.7 K/mm3 (4.0-10.0)
[2024-03-07 19:41] LABS: EPI CELLS 1 /uL (0-25.1); HYALINE CASTS 28 /uL (0-3.1); URINE APPEARANCE CLOUDY; URINE BACTERIA 22 /uL (0-1359); URINE BILIRUBIN NEGATIVE (NEGATIVE); URINE COLOR YELLOW; URINE GLUCOSE (UA) NEGATIVE (NEGATIVE); URINE KETONE NEGATIVE (NEGATIVE); URINE LEUK ESTERASE 1+ (NEGATIVE); URINE NITRITE NEGATIVE (NEGATIVE); URINE PROTEIN 2+ (NEGATIVE); URINE WBC 732 /uL (0-25.8)
[2024-03-07 19:49] LABS: POTASSIUM 4.2 mmol/L (3.5-5.1)
[2024-03-07 19:52] LABS: CALCIUM 9.3 mg/dL (8.5-10.1)
[2024-03-07 19:53] LABS: ALBUMIN 3.5 g/dl (3.4-5.0); BLOOD UREA NITROGEN 17.2 mg/dL (7-18)
[2024-03-07 19:56] LABS: CREATININE 1.2 mg/dL (0.55-1.3); PHOSPHOROUS 2.7 mg/dL (2.5-4.9)
[2024-03-07 19:57] LABS: BILIRUBIN,TOTAL 0.5 mg/dL (0.2-1); TOT PROT 7.3 g/dl (6.4-8.2)
[2024-03-07] MEDS ORDERED: SULFAMETHOXAZOLE/TRIMETHOPRIM 800MG/160MG D.S. TABLET ONE (20:15)
[2024-03-07] MEDS ORDERED: IBUPROFEN 600 MG TABLET (FP) PO ONE (20:15)
[2024-03-07] MEDS: IBUPROFEN 600 MG TABLET (FP) PO ONE (20:18)
[2024-03-07] MEDS: SULFAMETHOXAZOLE/TRIMETHOPRIM 800MG/160MG D.S. TABLET PO ONE (20:18)
[2024-03-07 20:38] LABS: URINE CRYSTALS MODERATE /hpf
[2024-03-07 20:39] LABS: YEAST NONE SEEN (NEGATIVE)
== END 2024-03-07 20:31 | disposition home or self-care (01) ==
LOC: JER 17:54
DX: N39.0 Urinary tract infection, site not specified (principal); N40.1 Benign prostatic hyperplasia with lower urinary tract symptoms; R33.8 Other retention of urine; R10.30 Lower abdominal pain, unspecified; R30.0 Dysuria
CPT/HCPCS: 36415; 80053; 81003; 83735; 84100; 85025; 87086; 99284-25

== ENCOUNTER 2025-09-03 06:17 | Day surgery (SDC) | payer OTHER ==
[2025-09-01 16:32] VITALS: BMI 25.2
[2025-09-03] MEDS ORDERED: BUPIVACAINE HCL/PF 0.25% (2.5MG/ML) 10 ML VIAL ONE (11:04)
[2025-09-03] MEDS ORDERED: HEPARIN NA (PORCINE) 5,000 UNITS/ML 1ML VIAL ONE (11:04)
[2025-09-03] MEDS ORDERED: cefOXitin SODIUM 2 GM VIAL (RESTRICTED TO ID) IVPB ONE (11:04)
[2025-09-03] MEDS ORDERED: MIDAZOLAM HCL 2 MG/2 ML SINGLE DOSE VIAL ONE ×2 (11:56→14:09)
[2025-09-03] MEDS ORDERED: PROPOFOL 20 ML ONE ×3 (11:56→12:53)
[2025-09-03] MEDS ORDERED: SUCCINYLCHOLINE CHLORIDE 200 MG/10 ML SYRINGE ONE (12:02)
[2025-09-03] MEDS ORDERED: KETAMINE HCL 200 MG/20 ML VIAL ONE (12:03)
[2025-09-03] MEDS ORDERED: ROCURONIUM BROMIDE 50 MG/5 ML SYRINGE ONE ×2 (12:03→12:38)
[2025-09-03] MEDS ORDERED: ONDANSETRON 4 MG/2 ML VIAL IVPUSH PRN (12:09)
[2025-09-03] MEDS ORDERED: LACTATED RINGERS SOLUTION 1,000 ML IV SCH (12:15)
[2025-09-03] MEDS: cefOXitin SODIUM 2 GM VIAL (RESTRICTED TO ID) IVPB ONE ×2 (12:25)
[2025-09-03] MEDS: BUPIVACAINE HCL/PF 0.25% (2.5MG/ML) 10 ML VIAL IJ ONE ×2 (12:27)
[2025-09-03] MEDS ORDERED: DEXAMETHASONE SOD PHOSPHATE 4 MG/1 ML VIAL ONE (12:28)
[2025-09-03] MEDS ORDERED: ONDANSETRON 4 MG/2 ML VIAL ONE ×2 (12:28→14:09)
[2025-09-03] MEDS ORDERED: SUGAMMADEX SODIUM 200 MG/2 ML VIAL ONE (12:38)
[2025-09-03] MEDS ORDERED: SEVOFLURANE 250 ML BTL ONE (13:00)
[2025-09-03] MEDS ORDERED: LIDOCAINE HCL 2% 100 MG/5 ML DISP.SYRIN ONE (13:01)
[2025-09-03] MEDS ORDERED: KETOROLAC TROMETHAMINE 30 MG/1 ML VIAL ONE (14:09)
[2025-09-03 17:12] VITALS: BP 125/70; PULSE 71; RESP 18; TEMP 98
== END 2025-09-03 17:20 | disposition home or self-care (01) ==
LOC: JASU-SURG 06:17
PROVIDERS: ATTEND Surgery
PROC: 8E0W4CZ Robotic Assisted Procedure of Trunk Region, Percutaneous Endoscopic Approach (ICD-10-PCS; 2025-09-03)
PROC: 0WUF4JZ Supplement Abdominal Wall with Synthetic Substitute, Percutaneous Endoscopic Approach (ICD-10-PCS; principal; 2025-09-03 11:00)
DX: K42.9 Umbilical hernia without obstruction or gangrene (principal)
CPT/HCPCS: 49593; S2900; 94760; C1781